=== PATIENT | male | born 1990 | race Caucasian/White ===

== ENCOUNTER 2017-11-27 10:17 | Emergency (ER) | payer BC ==
[~2017-11-27] VITALS: Ht 180.3 cm; Wt 99.8 kg
[2017-11-27] MEDS ORDERED: GABAPENTIN400 MG PO (10:20)
[2017-11-27] MEDS ORDERED: ZOLOFT100 MG PO (10:20)
[2017-11-27 10:21] VITALS: BP 142/90
[2017-11-27] MEDS ORDERED: Motrin,Rufen800 MG PO (11:18)
== END 2017-11-27 11:33 | disposition home or self-care (01) ==
LOC: ED 10:17
DX: S93.401A Sprain of unspecified ligament of right ankle, initial encounter (principal); F17.200 Nicotine dependence, unspecified, uncomplicated; Z88.8 Allergy status to other drugs, medicaments and biological substances; Z79.899 Other long term (current) drug therapy; X50.1XXA Overexertion from prolonged static or awkward postures, initial encounter; Y93.89 Activity, other specified; Y92.89 Other specified places as the place of occurrence of the external cause; Y99.8 Other external cause status

== ENCOUNTER 2017-12-09 14:51 | Emergency (ER) | payer BC ==
[~2017-12-09] VITALS: Ht 180.3 cm; Wt 102.1 kg
--- NOTE | ~2017-12-09 | EKG ---
[place], [place] ELECTROCARDIOGRAM REPORT NAME: NOLAN SHER UNIT #: [id number] ROOM: DOCTOR: EPIPHANY DRAFT REPORT BIRTHDATE: [birth year] [facility] Test Date: 2017-12-09 Test Time: 15:06:26 Pat Name: NOLAN SHER Department: Room: Gender: Welder Explosion: Lisy Kang : 1990 Requested By: SILAS SCHAFFER DNP Order Number: [id number] Reading MD: Andrea Aceves MD Measurements Intervals Standard Rate: 102 P: 21 [place]: 102 QRS: 71 QRSD: 103 T: 34 QT: 349 QTc: 455 Interpretive Statements Sinus tachycardia Electronically Signed On 12-10-2017 13:41:46 PDT by Andrea Aceves MD CM:EKGRPT:ELECTROCARDIOGRAM REPORT [id number] SILAS SCHAFFER DNP EPIPHANY DRAFT REPORT SILAS SCHAFFER DNP
[~2017-12-09 14:51] MED LIST: GABAPENTIN400 MG PO; Motrin,Rufen800 MG PO; ZOLOFT100 MG PO
[2017-12-09 14:52] VITALS: BP 150/87
[2017-12-09 15:17] LABS: BASO % 0.1 % (0.0-1.0); EOS # 0.1 10*3/uL (0.0-0.4); EOS % 0.7 % (1.0-4.0); HEMATOCRIT 46.7 % (42.0-52.0); HEMOGLOBIN 15.7 g/dl (14.0-18.0); LYMPH # 2.5 10*3/uL (1.3-4.4); LYMPH % 18.2 % (27.0-41.0); MEAN CELL VOLUME 96.5 fl (80.0-94.0); MEAN CORPUSCULAR HGB 32.4 pg (27.0-31.0); MEAN CORPUSCULAR HGB CONC 33.6 g/dl (33.0-37.0); MEAN PLATELET VOLUME 11.6 fl (9.6-12.3); MONO # 1.1 10*3/uL (0.1-1.0); MONO % 7.9 % (3.0-9.0); NEUT # 9.9 10*3/uL (2.3-7.9); NEUT % 72.8 % (47.0-73.0); PLATELET COUNT AUTOMATED 226 10*3/uL (130-400); RED BLOOD COUNT 4.84 10*6/uL (4.50-5.90); RED CELL DISTRI WIDTH 13.5 % (0-14.5); WHITE BLOOD COUNT 13.6 10*3/uL (4.8-10.8)
[2017-12-09 15:33] LABS: ALBUMIN 4.3 gm/dl (3.1-4.5); ALKALINE PHOSPHATASE 85 U/L (45-117); BUN 10 mg/dl (7-24); CHLORIDE 106 mmol/L (98-107); CREATININE 1.14 mg/dL (0.70-1.30); POTASSIUM 4.4 mmol/L (3.5-5.1); SGOT/AST 8 IU/L (3-35); SGPT/ALT 22 U/L (12-78); SODIUM 142 mmol/L (136-145); TOTAL PROTEIN 7.4 gm/dL (6.4-8.2)
[2017-12-09 15:36] LABS: TROPONIN I < 0.015 ng/ml (<0.045)
== END 2017-12-09 16:28 | disposition home or self-care (01) ==
LOC: ED 14:51
PROVIDERS: Nurse Practitioner Family
DX: R00.0 Tachycardia, unspecified (principal); R20.2 Paresthesia of skin; R00.2 Palpitations; R42 Dizziness and giddiness; R06.02 Shortness of breath; F17.200 Nicotine dependence, unspecified, uncomplicated; Z79.899 Other long term (current) drug therapy; Z88.6 Allergy status to analgesic agent

== ENCOUNTER → 2017-12-16 | Outpatient (CLI) | payer BC | END | disposition home or self-care (01) | LOC: RESCLI 03:41 | DX: I47.1 Supraventricular tachycardia (principal); F17.200 Nicotine dependence, unspecified, uncomplicated; Z71.6 Tobacco abuse counseling; Z79.899 Other long term (current) drug therapy; Z88.8 Allergy status to other drugs, medicaments and biological substances ==

== ENCOUNTER → 2018-01-13 | Outpatient (CLI) | payer BC | END | disposition home or self-care (01) | LOC: CARD 13:56 | DX: I08.1 Rheumatic disorders of both mitral and tricuspid valves (principal); I47.1 Supraventricular tachycardia ==